=== PATIENT | female | born 1995 | race Caucasian/White ===

== ENCOUNTER 2018-09-19 13:06 | Emergency (ER) | payer OTHER ==
[~2018-09-19] VITALS: Ht 170.2 cm; Wt 108.9 kg
[~2018-09-19 13:06] MED LIST: AURALGAN EAR DR14 ML OT; CIPROFLOXIN HC2.5 M1 OTIC; CORTISPORIN OTI10 M2 OT; IBUPROFEN 800800 M1 PO; TESSALON200 MG PO; ZPAK PO; ZYRTEC10 M2 PO
[2018-09-19 13:16] VITALS: BP 121/86
== END 2018-09-19 14:04 | disposition home or self-care (01) ==
LOC: M.ERS 13:06
DX: S93.402A Sprain of unspecified ligament of left ankle, initial encounter (principal); W19.XXXA Unspecified fall, initial encounter; Y93.89 Activity, other specified; Y92.89 Other specified places as the place of occurrence of the external cause; Y99.8 Other external cause status; Z88.0 Allergy status to penicillin; Z88.8 Allergy status to other drugs, medicaments and biological substances

== ENCOUNTER → 2021-12-31 | Emergency (ER) | payer OTHER, MEDICAID ==
[~2021-12-31] VITALS: Ht 162.6 cm; Wt 127.0 kg
[2021-12-31 22:07] VITALS: BP 122/77
--- NOTE | 2022-01-01 09:40 | EKG ---
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
== END ==
LOC: M.ERS 22:03
DX: R00.2 Palpitations (principal); R07.89 Other chest pain; Z53.21 Procedure and treatment not carried out due to patient leaving prior to being seen by health care provider